=== PATIENT | female | born 1965 | race Caucasian/White ===

== ENCOUNTER 2017-11-24 17:36 | Emergency (ER) | payer OTHER ==
[~2017-11-24] VITALS: Ht 154.9 cm; Wt 49.2 kg
[2017-11-24] MEDS ORDERED: FLONASE 0.05%50 MCG NASAL (17:43)
[2017-11-24] MEDS ORDERED: LAMICTAL100 MG PO (17:43)
[2017-11-24] MEDS ORDERED: VENTOLIN HFA 1818 GM INH (17:44)
[2017-11-24] MEDS ORDERED: SINGULAIR 10 MG10 M1 PO (17:44)
[2017-11-24 18:21] LABS: ABSOLUTE EOSINOPHILS 0.1 thou/uL (0.0-0.7); ABSOLUTE LYMPHOCYTES 3.2 thou/uL (0.8-5.3); ABSOLUTE MONOCYTES 0.5 thou/uL (0.0-1.2); ABSOLUTE NEUTROPHILS 3.6 thou/uL (1.6-8.1); BASOPHILS 0.4 %; HEMATOCRIT 40.9 % (37.0-47.0); HEMOGLOBIN 13.8 gm/dL (12.0-15.0); LYMPHOCYTES 42.8 %; MCHC 33.7 g/dL (28.0-37.0); MCV 91.9 fL (80.0-100.0); MONOCYTES 7.2 %; MPV 7.2 fl. (7.2-11.1); NUCLEATED RBCS 0 /100WBC; PLATELET COUNT* 358 thou/uL (150-400); POLYS 47.6 %; RBC 4.46 mil/uL (4.20-5.00); RDW-CV 12.6 % (10.5-14.5); WBC 7.6 thou/uL (4.0-11.0)
[2017-11-24 18:30] LABS: ANION GAP 12 mmol/L (7-16); BUN 12 mg/dL (7-18); CHLORIDE 101 mmol/L (98-107); CO2 28 mmol/L (21-32); CREATININE 0.7 mg/dL (0.6-1.3); GLUCOSE 90 mg/dL (70-99); POTASSIUM 3.5 mmol/L (3.5-5.1); SODIUM 141 mmol/L (136-145)
[2017-11-24 18:34] LABS: APTT 29.2 Seconds (25.0-31.3); PROTIME 10.2 Seconds (9.20-11.50)
[2017-11-24 18:41] LABS: INFLUENZA A ANTIGEN None Detected (None Detect); INFLUENZA B ANTIGEN None Detected (None Detect)
[2017-11-24 18:41] LABS: ALBUMIN 4.2 g/dL (3.4-5.0); ALKALINE PHOSPHATASE 67 U/L (46-116); NT-PRO BRAIN NAT PEPTIDE 25 pg/mL (<300); SGOT 19 U/L (15-37); SGPT 33 U/L (30-65); TOTAL BILIRUBIN 0.3 mg/dL (<0.1-1.0); TOTAL PROTEIN 7.3 g/dL (6.4-8.2); TROPONIN-I LEVEL <0.06 ng/mL (<0.06)
[2017-11-24] MEDS ORDERED: MEDROLDOSEPACK PO (18:55)
[2017-11-24 19:07] VITALS: BP 134/86
--- NOTE | 2017-11-25 10:53 | EKG ---
[place] [address] ELECTROCARDIOGRAM REPORT Name: MACI BACKEN BURT Room: [facility]#: [id number] Admission: 11/24/17 Attend Phys: Discharge: 11/24/17 Date of : 69 Report #: [id number] THIS REPORT FOR: //name// [facility] ED Test Date: 2017-11-24 Test Time: 17:41:10 Pat Name: POLI BACK Department: Room: Gender: F Hardware Developer: GINNY : 1965 Requested By: Ivis Corado Order Number: [id number] MD: Pola Torrez Measurements Intervals [place] Rate: 77 P: 74 NM: 162 QRS: 56 QRSD: 106 T: 30 QT: 367 QTc: 416 Interpretive Statements Sinus rhythm Probable left atrial enlargement RSR' in V1 or V2, right VCD or RVH No previous ECG available for comparison Electronically Signed On 11-25-2017 10:52:51 CLOTH TEARER by Pola Torrez [email or web address] <ELECTRONICALLY SIGNED> By: Pola Torrez MD, [facility] 11/25/17 1052 D: [id number] Pola Torrez MD, FACC /EPI
== END 2017-11-24 19:07 | disposition home or self-care (01) ==
LOC: M.ERS 17:36
PROVIDERS: Personal Emergency Response Attendant
DX: R07.89 Other chest pain (principal); J32.9 Chronic sinusitis, unspecified; F41.9 Anxiety disorder, unspecified; F32.9 Major depressive disorder, single episode, unspecified; J45.909 Unspecified asthma, uncomplicated; I49.3 Ventricular premature depolarization; Z88.2 Allergy status to sulfonamides

== ENCOUNTER → 2018-12-22 | Outpatient (CLI) | payer OTHER ==
[~2018-12-22] MED LIST: FLONASE 0.05%50 MCG NASAL; LAMICTAL100 MG PO; MEDROLDOSEPACK PO; SINGULAIR 10 MG10 M1 PO; VENTOLIN HFA 1818 GM INH
== END ==
LOC: M.CT 09:30
DX: J01.90 Acute sinusitis, unspecified (principal); J45.909 Unspecified asthma, uncomplicated; J34.2 Deviated nasal septum; Z88.2 Allergy status to sulfonamides; Z88.8 Allergy status to other drugs, medicaments and biological substances; Z82.49 Family history of ischemic heart disease and other diseases of the circulatory system; Z80.42 Family history of malignant neoplasm of prostate; Z83.3 Family history of diabetes mellitus; Z80.3 Family history of malignant neoplasm of breast

== ENCOUNTER → 2019-01-06 | Outpatient (CLI) | payer OTHER | LOC: M.NUC 12-26 14:39 | DX: M27.9 Disease of jaws, unspecified (principal) ==

== ENCOUNTER 2020-07-21 10:43 | Emergency (ER) | payer OTHER ==
[~2020-07-21] VITALS: Ht 154.9 cm; Wt 46.7 kg
[~2020-07-21 10:43] MED LIST changes: +LAMICTAL XR250 MG PO; -LAMICTAL100 MG PO
[2020-07-21] MEDS ORDERED: AZELASTINE205.5 MCG/ NARES (10:59)
[2020-07-21] MEDS ORDERED: SUDAFED 12 HOU120 MG PO (11:00)
[2020-07-21] MEDS ORDERED: ALLEGRA ALLERG180 MG PO (11:00)
[2020-07-21] MEDS ORDERED: IBUPROFEN 800800 M1 PO (11:00)
[2020-07-21] MEDS ORDERED: LORAZEPAM 0.50.5 MG PO (11:00)
[2020-07-21 11:34] LABS: ABSOLUTE EOSINOPHILS 0.1 thou/uL (0.0-0.7); ABSOLUTE LYMPHOCYTES 2.3 thou/uL (0.8-5.3); ABSOLUTE MONOCYTES 0.4 thou/uL (0.0-1.2); ABSOLUTE NEUTROPHILS 2.6 thou/uL (1.6-8.1); BASOPHILS 0.6 %; HEMATOCRIT 43.8 % (37.0-47.0); HEMOGLOBIN 14.3 gm/dL (12.0-15.0); LYMPHOCYTES 41.9 %; MCH 30.2 pg (26.0-34.0); MCHC 32.7 g/dL (28.0-37.0); MCV 92.4 fL (80.0-100.0); MONOCYTES 7.1 %; NUCLEATED RBCS 0 /100WBC; PLATELET COUNT* 376 thou/uL (150-400); POLYS 48.4 %; RBC 4.73 mil/uL (4.20-5.00); RDW-CV 12.7 % (10.5-14.5); WBC 5.4 thou/uL (4.0-11.0)
[2020-07-21 11:43] LABS: URINE BILIRUBIN NEGATIVE (Negative); URINE BLOOD NEGATIVE (Negative); URINE CLARITY CLEAR; URINE COLOR YELLOW; URINE GLUCOSE-RANDOM NEGATIVE (Negative); URINE KETONES NEGATIVE (Negative); URINE LEUKOCYTES-REFLEX NEGATIVE (Negative); URINE NITRITE-REFLEX NEGATIVE (Negative); URINE PROTEIN NEGATIVE (Negative); URINE SPECIFIC GRAVITY <= 1.005 (1.005-1.030); URINE UROBILINOGEN 0.2 E.U./dl (0.2-1.0)
[2020-07-21 11:44] LABS: CALCIUM 9.5 mg/dL (8.5-10.1); CREATININE 0.6 mg/dL (0.6-1.3); POTASSIUM 3.7 mmol/L (3.5-5.1)
[2020-07-21 11:48] LABS: ALBUMIN 4.4 g/dL (3.4-5.0); TOTAL BILIRUBIN 0.4 mg/dL (<0.1-1.0); TOTAL PROTEIN 7.7 g/dL (6.4-8.2)
[2020-07-21] MEDS ORDERED: MECLIZINE HCL25 M1 PO (12:22)
[2020-07-21 12:42] VITALS: BP 137/86
--- NOTE | 2020-07-21 15:51 | EKG ---
[place] [address] ELECTROCARDIOGRAM REPORT Name: MACI BACKEN BURT Room: [facility]#: [id number] Admission: 07/21/20 Attend Phys: Discharge: 07/21/20 Date of : 69 Date of Service: 07/21/20 1120 Report #: [id number] THIS REPORT FOR: //name// [facility] ED Test Date: 2020-07-21 Test Time: 11:20:58 Pat Name: POLI BACK Department: Room: Gender: Automotive Lube Technician: [facility] : 1965 Requested By: Dionicio Beckwith Order Number: [id number] MD: Tu Ayala Measurements Intervals [place] Rate: 69 P: 80 [place]: 178 QRS: 55 QRSD: 88 T: 52 QT: 409 QTc: 438 Interpretive Statements Sinus rhythm RSR' in V1 or V2, probably normal variant Baseline wander in lead(s) II,III,aVF Compared to ECG 11/24/2017 17:41:10 No significant changes noted Electronically Signed On 07-21-2020 15:51:02 CDT by Tu Ayala [email or web address] <ELECTRONICALLY SIGNED> By: Tu Ayala MD, FACC 07/21/20 1551 1120 1120 Tu Ayala MD, FACC /EPI
== END 2020-07-21 12:28 | disposition home or self-care (01) ==
LOC: M.ERS 10:43
PROVIDERS: Emergency Medicine Emergency Medical Services
DX: R42 Dizziness and giddiness (principal); R51.9 Headache, unspecified; R11.0 Nausea; Z79.899 Other long term (current) drug therapy; Z88.2 Allergy status to sulfonamides

== ENCOUNTER → 2020-10-13 | Outpatient (CLI) | payer OTHER ==
[~2020-10-13] MED LIST changes: +ALLEGRA ALLERG180 MG PO; +ASA81BEC PO; +AZELASTINE205.5 MCG/ NARES; +CHILDREN'S ASPI81 M1 PO; +FLONASE 0.05%50 MCG NARES; +IBUPROFEN 800800 M1 PO; +LAMOTRIGINE OD100 MG PO; +LORAZEPAM 0.50.5 MG PO; +MECLIZINE HCL25 M1 PO; +MONTELUKAST SODI4 M1 PO; +NITROSTAT0.4 M1 SUBLING; +PREMARIN30 GM VAG; +PROAIR HFA8.5 GM INH; +SUDAFED 12 HOU120 MG PO; +SUPER THERAVIT1 EACH PO
== END ==
LOC: M.RAD 13:27
PROVIDERS: ATTEND Internal Medicine
DX: J98.4 Other disorders of lung (principal)

== ENCOUNTER 2020-10-14 21:17 | Inpatient (IN) | payer OTHER ==
[~2020-10-14] VITALS: Ht 154.9 cm; Wt 49.0 kg
[~2020-10-14 21:17] MED LIST changes: -ASA81BEC PO; -CHILDREN'S ASPI81 M1 PO; -FLONASE 0.05%50 MCG NARES; -LAMOTRIGINE OD100 MG PO; -MONTELUKAST SODI4 M1 PO; -NITROSTAT0.4 M1 SUBLING; -PREMARIN30 GM VAG; -PROAIR HFA8.5 GM INH; -SUPER THERAVIT1 EACH PO
[2020-10-14 21:24] VITALS: BP 116/79
[2020-10-14] MEDS ORDERED: NITROSTAT0.4 M1 SUBLING ×2 (21:38→21:40)
[2020-10-14] MEDS ORDERED: ASA81BEC PO (21:38)
[2020-10-14] MEDS ORDERED: CHILDREN'S ASPI81 M1 PO (21:39)
[2020-10-14] MEDS ORDERED: PREMARIN30 GM VAG (21:40)
[2020-10-14] MEDS ORDERED: LAMOTRIGINE OD100 MG PO (21:41)
[2020-10-14] MEDS ORDERED: AZELASTINE205.5 MCG/ NARES (21:41)
[2020-10-14] MEDS ORDERED: ALLEGRA ALLERG180 MG PO (21:42)
[2020-10-14] MEDS ORDERED: MONTELUKAST SODI4 M1 PO (21:42)
[2020-10-14] MEDS ORDERED: FLONASE 0.05%50 MCG NARES (21:42)
[2020-10-14] MEDS ORDERED: PROAIR HFA8.5 GM INH (21:42)
[2020-10-14] MEDS ORDERED: SUDAFED 12 HOU120 MG PO (21:43)
[2020-10-14] MEDS ORDERED: SUPER THERAVIT1 EACH PO (21:43)
[2020-10-14] MEDS ORDERED: LORAZEPAM 0.50.5 MG PO (21:43)
[2020-10-14 22:18] LABS: ABSOLUTE BASOPHILS 0.1 thou/uL (0.0-0.2); ABSOLUTE EOSINOPHILS 0.2 thou/uL (0.0-0.7); ABSOLUTE LYMPHOCYTES 3.9 thou/uL (0.8-5.3); ABSOLUTE MONOCYTES 0.8 thou/uL (0.0-1.2); ABSOLUTE NEUTROPHILS 2.9 thou/uL (1.6-8.1); BASOPHILS 0.7 %; EOSINOPHILS 2.4 %; HEMATOCRIT 42.3 % (37.0-47.0); HEMOGLOBIN 14.2 gm/dL (12.0-15.0); LYMPHOCYTES 49.6 %; MCH 30.8 pg (26.0-34.0); MCHC 33.7 g/dL (28.0-37.0); MCV 91.4 fL (80.0-100.0); MONOCYTES 10.3 %; MPV 7.2 fl. (7.2-11.1); NUCLEATED RBCS 0 /100WBC; PLATELET COUNT* 415 thou/uL (150-400); RBC 4.62 mil/uL (4.20-5.00); RDW-CV 12.9 % (10.5-14.5); WBC 7.8 thou/uL (4.0-11.0)
[2020-10-14 22:23] LABS: CALCIUM 9.5 mg/dL (8.5-10.1); CREATININE 0.7 mg/dL (0.6-1.3)
[2020-10-14 22:28] LABS: APTT 27.9 Seconds (25.0-31.3); PROTIME 10.4 Seconds (9.20-11.50)
[2020-10-14 22:34] LABS: ALBUMIN 4.4 g/dL (3.4-5.0); TOTAL BILIRUBIN 0.3 mg/dL (<0.1-1.0); TOTAL PROTEIN 7.6 g/dL (6.4-8.2)
[2020-10-14 22:35] LABS: MONOTEST (MONOSPOT)* NEGATIVE (Negative)
[2020-10-15] VITALS (8 sets, daily range): BP systolic 120–157; BP diastolic 71–92
[2020-10-15 00:35] LABS: INFLUENZA A ANTIGEN Negative (Negative); INFLUENZA B ANTIGEN Negative (Negative)
--- NOTE | 2020-10-15 13:53 | EKG ---
[place] [address] ELECTROCARDIOGRAM REPORT Name: POLI BACKNE Room: [address]#: [id number] Admission: 10/15/20 Attend Phys: Марина Munguia MD Discharge: Date of : [birth year] Date of Service: 10/14/202122 Report #: [id number] THIS REPORT FOR: //name// [facility] ED Test Date: 2020-10-14 Test Time: 21:23:01 Pat Name: POLI BACK Department: Room: [facility] Gender: F Audio Visual Production Specialist: : 1965 Requested By: Ivis Corado Order Number: [id number] MD: Alphonso Beckham Measurements Intervals [place] Rate: 92 P: 76 [place]: 160 QRS: 64 QRSD: 88 T: 61 QT: 367 QTc: 455 Interpretive Statements Sinus rhythm Ventricular trigeminy RSR' in V1 or V2, probably normal variant Minimal ST depression, inferior leads Compared to ECG 07/21/2020 11:20:58 Ventricular premature complex(es) now present ST (T wave) deviation now present Electronically Signed On 10-15-2020 13:52:56 JOB SERVICE CONSULTANT by Alphonso Beckham [email or web address] <ELECTRONICALLY SIGNED> By: Madison Beckham MD, [facility] 10/15/20 1352 22 22 Madison Beckham MD, [facility] /EPI
[2020-10-16 04:09] VITALS: BP 134/72
[2020-10-16 09:00] VITALS: BP 148/76
--- NOTE | 2020-10-16 12:42 | CON ---
[address] [address] CONSULTATION Name: POLI BACK Room: [address] IN [facility].#: [id number] Admission: 10/16/20 Attend Phys: Марина Munguia MD Discharge: Date of : 69 Report #: [id number] THIS REPORT FOR: cc: Robyn Paredes Linda J. DO ~ Madison Beckham MD [facility] CONSULTATION HISTORY OF PRESENT ILLNESS: I was asked by Dr. Марина Munguia to see this 55-year-old white female in cardiology consultation for evaluation and treatment of chest pain. I saw this lady on 10/13/2020 in my office as an initial consultation as well. Please see my initial consultation note in the chart. This lady has a history of chest pain with shortness of breath as well as palpitations and irregular heartbeats and tachycardia, fatigue, dyspnea on exertion. These symptoms apparently began with the onset of COVID-19 approximately 2 months ago. They have persisted. She does have an abnormal EKG with nonspecific ST-T abnormalities. On her EKG today when she came in at this time, she had a ventricular trigeminy, which accounts for her palpitations. She does have essential hypertension that has been untreated and hypercholesterolemia that has been untreated. She does have a positive family history of coronary artery disease. She also is on estrogens, albeit transvaginal at 0.625 mg of Premarin and likely much of it is absorbed. She also has asthma and is on a variety of medicines for that. Her chest discomfort is a substernal pressure, is normally 3 on a scale of 10. It does have an exertional component. It usually lasts 15-20 minutes. There is associated shortness of breath and also when she gets it, she is sufficiently short of breath she cannot talk. We were attempting to schedule outpatient workup for, but she came into the ER yesterday evening, apparently because of more chest discomfort. This discomfort occurred at rest. It was a 6 or 7 on a scale of 10. It went on for more than 40 minutes. It had the same associated symptoms. Her EKG did not show any particularly acute changes, although there were suspicious ST changes in the inferior and lateral leads as well as a ventricular trigeminy. Again, see my entire note. It includes family history, social history, review of systems and past medical history including medications. PHYSICAL EXAMINATION: GENERAL: Today, she presents as well-developed, well-nourished white female, in no acute distress. VITAL SIGNS: Her pulse was 61 when I saw her, her blood pressure was 120/71, respirations 17 and regular, temperature is 97.8 degrees. HEENT: Her head was atraumatic. Eyes clear. NECK: Supple. There is no jugular venous distention or hepatojugular reflux. Thyroid is not enlarged. There is no adenopathy. SKIN: Warm and dry. Mucous membranes are moist. LUNGS: Clear [place] [address] CONSULTATION Name: POLI BACK Room: [address] IN [facility]#: [id number] Admission: 10/16/20 Attend Phys: Марина Munguia MD Discharge: Date of : 69 Report #: [id number] HEART: Revealed normal first and second heart sound. There is soft S4. There is no S3. There are no murmurs, rubs, thrills, heaves or gallops. PMI is nondisplaced. The rhythm was regular when I listened to her. There were no murmurs, rubs, thrills, heaves or gallops. ABDOMEN: Soft, flat and nontender. No palpable masses, no organomegaly. EXTREMITIES: Reveal no cyanosis, clubbing or edema. NEUROLOGIC: The patient mentated normally, talked normally, moved all extremities normally. IMPRESSION: 1. Chest pain. 2. Shortness of breath. 3. Status post COVID-19. 4. Palpitations. 5. Ventricular premature complexes. 6. Abnormal EKG. 7. Essential hypertension. 8. Hypercholesterolemia. 9. Asthma. RECOMMENDATION: She should have an exercise Cardiolite stress test and an echo and then go from there. If those are negative, she will need an MRI of her heart. Thank you very much for asking me to see the patient. If there are any questions, please feel free to contact me. <ELECTRONICALLY SIGNED> By: Madison Beckham MD, FACC 10/16/20 1242 1155 [id number]. Alphonso Beckham MD, FACC /nt
[2020-10-16 14:01] VITALS: BP 102/58
[2020-10-16 18:56] VITALS: BP 136/86
[2020-10-16 21:00] VITALS: BP 136/80
[2020-10-17 01:54] VITALS: BP 134/85
[2020-10-17 05:05] VITALS: BP 116/84
[2020-10-17 07:30] VITALS: BP 147/95
--- NOTE | 2020-10-17 15:01 | 2DMMODE ---
[place] [address] 2 D/M-MODE ECHOCARDIOGRAM Name: POLI BACK Room: [address] IN [facility]#: [id number] Admission: 10/16/20 Attend Phys: Марина Munguia MD Discharge: Date of : 69 Date of Service: 10/17/20 1500 Report #: [id number] THIS REPORT FOR: cc: Robyn Paredes,Robyn Braun,Mehrdad Dominique MD [facility] ~ APPROVED REPORT Study performed: 10/17/2020 13:07:57 EXAM: Comprehensive 2D, Doppler, and color-flow Echocardiogram Patient Location: In-Patient Room #: [facility] BSA: 1.44 HR: 82 bpm BP: 116/84 mmHg Other Information Study Quality: Good Indications Chest Pain 2D Dimensions IVSd: 9.37 (7-11mm) LVOT Diam: 19.76 (18-24mm) LVDd: 39.18 mm PWd: 8.85 (7-11mm) Ascending Ao: 26.86 (22-36mm) LVDs: 23.73 (25-40mm) Aortic Root: 30.48 mm Volumes Left Atrial Volume (Systole) LA ESV Index: 7.20 mL/m2 Aortic Valve AoV Peak Rudy.: 0.90 m/s AO Peak Gr.: 3.27 mmHg LVOT Max P.24 mmHg AO Mean Gr.: 1.46 mmHg LVOT Mean P.06 mmHg LVOT Max V: 0.75 m/s AO V2 VTI: 15.06 cm LVOT Mean V: 0.47 m/s SILVERIO (VTI): 2.92 cm2 LVOT V1 VTI: 14.34 [place] [address] 2 D/M-MODE ECHOCARDIOGRAM Name: POLI BACK Room: [address] IN ..#: [id number] Admission: 10/16/20 Attend Phys: Марина Munguia MD Discharge: Date of : 69 Date of Service: 10/17/20 1500 Report #: [id number] E/A Ratio: 0.92 MV Decel. Time: 161.61 ms MV E Max Rudy.: 0.55 m/s MV PHT: 46.87 ms MVA (PHT): 4.69 cm2 TDI E/Lateral E': 5.50 E/Medial E': 9.17 Medial E' Rudy.: 0.06 m/s Lateral E' Rudy.: 0.10 m/s Pulmonary Valve PV Peak Rudy.: 0.65 m/s PV Peak Gr.: 1.71 mmHg Left Ventricle The left ventricle is normal size. There is normal LV segmental wall motion. There is normal left ventricular wall thickness. Left ventricular systolic function is normal. The left ventricular ejection fraction is within the normal range. LVEF is 55-60%. Grade I - abnormal relaxation pattern. Right Ventricle The right ventricle is normal size. The right ventricular systolic function is normal. Atria The left atrium size is normal. The right atrium size is normal. Aortic Valve The aortic valve is normal in structure. No aortic regurgitation is present. There is no aortic valvular stenosis. Mitral Valve The mitral valve is normal in structure. There is no mitral valve regurgitation noted. No evidence of mitral valve stenosis. Tricuspid Valve The tricuspid valve is normal in structure. There is no tricuspid valve regurgitation noted. Pulmonic Valve The pulmonary valve is normal in structure. There is no pulmonic valvular [place] [address] 2 D/M-MODE ECHOCARDIOGRAM Name: POLI BACK Room: [address] IN [facility]#: [id number] Admission: 10/16/20 Attend Phys: Марина Munguia MD Discharge: Date of : 69 Date of Service: 10/17/20 1500 Report #: [id number] The aortic root is normal in size. IVC is normal in size and collapses >50% with inspiration. Pericardium There is no pericardial effusion. <Conclusion> The left ventricle is normal size. There is normal left ventricular wall thickness. Left ventricular systolic function is normal. The left ventricular ejection fraction is within the normal range. LVEF is 55-60%. Grade I - abnormal relaxation pattern. The right ventricle is normal size. The left atrium size is normal. The aortic valve is normal in structure. The mitral valve is normal in structure. The tricuspid valve is normal in structure. IVC is normal in size and collapses >50% with inspiration. There is no pericardial effusion. There is normal LV segmental wall motion. <ELECTRONICALLY SIGNED> By: Mehrdad Perdue MD, FACC 10/17/20 1500 1500 1500 Mehrdad Perdue MD, FACC /INF
[2020-10-17 16:31] VITALS: BP 147/95
--- NOTE | 2020-10-17 16:50 | CARDNUC ---
[place] [address] CARDIAC NUCLEAR IMAGING REPORT Name: POLI BACK Room: [address] IN [facility]#: [id number] Admission: 10/16/20 Attend Phys: Марина Munguia MD Discharge: Date of : [birth year] Date of Service: 10/17/20 1649 Report #: [id number] THIS REPORT FOR: cc: Robyn Paredes Linda J. DO Liston, Michael J. MD [facility] ~ APPROVED REPORT Imaging Protocol: Stress Tc-99m/Rest Tc-99m 1 day Study performed: 10/15/2020 12:35:00 Indication: Chest pain, dyspnea, ABN EKG, Palpitations, tachycardia, PVC's, ventricular trigeminy. Patient Location: In-Patient Room #: 223 Stress Tech: Renetta Covarrubias Stress Nurse: Bebe Hui RN Ht: 5 ft 1 in Wt: 103 lbs BSA: 1.42 m2 BMI: 19.45 Medical History Medical History: Chest pain, dyspnea, ABN EKG, Palpitations, PVC's, ventricular trigeminy, tachycardia, increased fatigue/weakness, s/p covid, asthma, HTN, HLD. Medications: ASA 81 Mg, NTG, New unknown Calcium CB prescription not yet started. Allergies: Sulfa ABX. Cardiac Risk Factors: FHX of CAD, HTN, Hyperlipidemia, SOB, PVC's, ventricular trigeminy, tachycardia. Previous Cardiac Procedures: None Pretest Chest Pain Characteristics: No chest pain Exercise History: Less physically active since Covid diagnosis. Physical Disabilities: Fatigue, weakness, dyspnea. Meds Held (24 hrs): NTG. Resting Data Rest SPECT myocardial perfusion imaging was performed in supine position 30 minutes following the intravenous injection of 10.5 mCi of Tc-99m Sestamibi. Time of rest injection: 09:00 The images were gated to evaluate regional wall motion and calculate [place] [address] CARDIAC NUCLEAR IMAGING REPORT Name: POLI BACK Room: [address]#: [id number] Admission: 10/16/20 Attend Phys: Марина Munguia MD Discharge: Date of : [birth year] Date of Service: 10/17/20 1649 Report #: [id number] Administration Route: IV Administration Site: Right AC Exercise Stress At peak stress, the patient was injected intravenously with 28.7mCi of Tc-99m Sestamibi. Time of stress injection: 11:15 Administration Route: IV Administration Site: Right AC Heart Rate at time of stress injection: 160 bpm. Patient continued to exercise for 1 minute(s). Gated Stress SPECT was performed 45 minutes after stress injection. The images were gated to evaluate regional wall motion and calculate left ventricular ejection fraction. Prone imaging was performed. Stress Test Details Stress Test: Exercise stress testing was performed using a Pascual protocol. HR Max Heart Rate (APMHR): 167 bpm Resting HR: 77 bpm Target HR (85% APMHR): 141 bpm Max HR Achieved: 160 bpm % of APMHR: 95 Recovery HR: 97 bpm BP Resting BP: 137/98 mmHg Max BP: 187/103 mmHg Recovery BP: 135/101 mmHg ECG Resting ECG: Sinus Rhythm Stress ECG: Sinus Tachycardia ST Change: None Arrhythmia: VPC's Recovery ECG: Sinus Rhythm Recovery ST Change: None Recovery Arrhythmia: VPC's Clinical Reason for Termination: Completed protocol, Maximal effort, Patient Request, Dyspnea, Dizziness. Stress Symptoms: Dyspnea, Weakness/Fatigue, Dizziness/lightheadedness. Exercise duration: 5 min 15 [place] [address] CARDIAC NUCLEAR IMAGING REPORT Name: POLI BACK Room: [address]#: [id number] Admission: 10/16/20 Attend Phys: Марина Munguia MD Discharge: Date of : 69 Date of Service: 10/17/20 1649 Report #: [id number] Exercise capacity: 7.05 METs Overall Exercise Capacity for Age: Reduced Functional Aerobic Impairment 95% The patient tolerated standard Pascual protocol exercise without significant cardiac symptoms. Exercise tolerance was somewhat limited. Patient did achieve target heart rate. Nurse Comments A 55 year old female inpatient presented for a treadmill Nuclear Stress test r/t chest pain, irregular HR, PVC's, ventricular trigeminy, increased SOA and fatigue/weakness s/p covid. Test tolerated through stage 2, reduced exercise capacity. Patient recovery extended d/t dyspnea, lightheadedness/dizziness. O2 Stats 100%. Patient escorted via wheelchair to Nuclear Medicine for imaging. Patient stated she felt better at that time. Stress ECG Conclusion The baseline twelve-lead EKG shows sinus rhythm with unifocal premature ventricular contractions. EKGs obtained during and post exercise show sinus rhythm and sinus tachycardia with continued unifocal premature ventricular contractions. No other significant arrhythmias were noted. Study Quality Study: Good Artifact: No artifact Study Data At rest, the left ventricular ejection fraction was 75%.. Post stress, the left ventricular ejection was 72%.. TID = 0.93. Perfusion Perfusion images obtained at rest and post exercise stress show uniform uptake of the radioisotope throughout the myocardium. Wall Motion Normal left ventricular wall motion. Nuclear Conclusion ECG Findings: negative for ischemia Clinical Findings: negative for ischemia Nuclear Findings: negative for ischemia Exercise Capacity: Limited Left Ventricular Function: normal Risk Study: [place] [address] CARDIAC NUCLEAR IMAGING REPORT Name: POLI BACK Room: [address]#: [id number] Admission: 10/16/20 Attend Phys: Марина Munguia MD Discharge: Date of : 69 Date of Service: 10/17/20 1649 Report #: [id number] Perfusion images show no defect to suggest infarct or ischemia. Left ventricular systolic function appears normal on gated studies. This is a low risk study. <Conclusion> The baseline twelve-lead EKG shows sinus rhythm with unifocal premature ventricular contractions. EKGs obtained during and post exercise show sinus rhythm and sinus tachycardia with continued unifocal premature ventricular contractions. No other significant arrhythmias were noted. <ELECTRONICALLY SIGNED> By: Tu Ayala MD, FACC 10/17/201648 48 48 Tu Ayala MD, FACC /INF
[2020-10-17 16:57] VITALS: BP 152/90
[2020-10-18 08:08] LABS: ANA INTERPRETATION Negative (Negative)
[2020-10-18 17:10] LABS: ANA INTERPRETATION Negative (())
== END 2020-10-17 18:10 | disposition home or self-care (01) | DRG 310 ==
LOC: M.ERS 21:17 → M.TBA-ER 10-15 00:14 → M.2W 10-15 01:18
PROVIDERS: Internal Medicine; Personal Emergency Response Attendant; ADMIT Family Medicine; ATTEND Family Medicine
DX: I49.3 Ventricular premature depolarization (principal); R07.9 Chest pain, unspecified; F32.9 Major depressive disorder, single episode, unspecified; J45.909 Unspecified asthma, uncomplicated; F41.9 Anxiety disorder, unspecified; I10 Essential (primary) hypertension; E78.00 Pure hypercholesterolemia, unspecified; I25.10 Atherosclerotic heart disease of native coronary artery without angina pectoris; Z86.16 Personal history of COVID-19; Z20.822 Contact with and (suspected) exposure to COVID-19; Z88.2 Allergy status to sulfonamides; Z90.710 Acquired absence of both cervix and uterus; Z79.82 Long term (current) use of aspirin; Z79.899 Other long term (current) drug therapy

== ENCOUNTER → 2020-12-09 | Outpatient (CLI) | payer OTHER ==
[~2020-12-09] MED LIST changes: +ASA81BEC PO; +CHILDREN'S ASPI81 M1 PO; +FLONASE 0.05%50 MCG NARES; +LAMOTRIGINE OD100 MG PO; +MONTELUKAST SODI4 M1 PO; +NITROSTAT0.4 M1 SUBLING; +PREMARIN30 GM VAG; +PROAIR HFA8.5 GM INH; +SUPER THERAVIT1 EACH PO
[2020-12-12 21:05] LABS: ANA INTERPRETATION Negative (())
== END ==
LOC: M.LAB 14:50
PROVIDERS: ATTEND Internal Medicine
DX: R94.31 Abnormal electrocardiogram [ECG] [EKG] (principal); G93.3 Postviral and related fatigue syndromes; R07.9 Chest pain, unspecified; Z86.16 Personal history of COVID-19

== ENCOUNTER → 2021-01-13 | Outpatient (CLI) | payer OTHER | LOC: M.CT 09:12 | PROVIDERS: ATTEND Nurse Practitioner | DX: J45.40 Moderate persistent asthma, uncomplicated (principal); G93.3 Postviral and related fatigue syndromes; F48.8 Other specified nonpsychotic mental disorders; R42 Dizziness and giddiness; H93.13 Tinnitus, bilateral; Z86.16 Personal history of COVID-19 ==

== ENCOUNTER 2021-02-06 09:33 | Emergency (ER) | payer OTHER ==
[~2021-02-06] VITALS: Ht 154.9 cm; Wt 45.4 kg
[2021-02-06 10:24] LABS: URINE BILIRUBIN NEGATIVE (Negative); URINE BLOOD NEGATIVE (Negative); URINE CLARITY CLEAR; URINE COLOR YELLOW; URINE GLUCOSE-RANDOM NEGATIVE (Negative); URINE KETONES NEGATIVE (Negative); URINE LEUKOCYTES NEGATIVE (Negative); URINE NITRITE NEGATIVE (Negative); URINE PROTEIN NEGATIVE (Negative); URINE UROBILINOGEN 0.2 E.U./dl (0.2-1.0)
[2021-02-06 11:15] LABS: HEMATOCRIT 43.6 % (37.0-47.0); HEMOGLOBIN 14.8 gm/dL (12.0-15.0); MCHC 33.9 g/dL (28.0-37.0); MCV 91.3 fL (80.0-100.0); MPV 6.5 fl. (7.2-11.1); RBC 4.78 mil/uL (4.20-5.00); RDW-CV 12.6 % (10.5-14.5); WBC 7.2 thou/uL (4.0-11.0)
[2021-02-06 11:20] LABS: CALCIUM 9.1 mg/dL (8.5-10.1); CREATININE 0.5 mg/dL (0.6-1.3); POTASSIUM 3.7 mmol/L (3.5-5.1)
[2021-02-06] MEDS ORDERED: ZOFRAN ODT4 MG PO (13:35)
[2021-02-06] MEDS ORDERED: NORCO5 PO (13:35)
[2021-02-06] MEDS ORDERED: MEDROLDOSEPACK PO (13:43)
[2021-02-06 13:59] VITALS: BP 143/93
== END 2021-02-06 14:00 | disposition home or self-care (01) ==
LOC: M.ERS 09:33
PROVIDERS: Emergency Medicine
DX: M54.16 Radiculopathy, lumbar region (principal); J45.909 Unspecified asthma, uncomplicated; Z90.710 Acquired absence of both cervix and uterus; Z90.89 Acquired absence of other organs; Z88.2 Allergy status to sulfonamides; Z88.5 Allergy status to narcotic agent

== ENCOUNTER → 2021-03-30 | Outpatient (CLI) | payer OTHER ==
[~2021-03-30] MED LIST changes: +NORCO5 PO; +ZOFRAN ODT4 MG PO
== END ==
LOC: M.CT 12:56
PROVIDERS: ATTEND Family Medicine
DX: N28.1 Cyst of kidney, acquired (principal); N28.89 Other specified disorders of kidney and ureter

== ENCOUNTER → 2021-04-04 | Outpatient (CLI) | payer OTHER | LOC: M.PUL 12:30 | PROVIDERS: ATTEND Family Medicine | DX: G47.19 Other hypersomnia (principal); G47.9 Sleep disorder, unspecified; R25.3 Fasciculation ==

== ENCOUNTER 2021-09-05 12:35 | Emergency (ER) | payer OTHER ==
[~2021-09-05] VITALS: Ht 152.4 cm; Wt 48.5 kg
[2021-09-05] MEDS ORDERED: DILTIAZEM ER180 M2 PO (12:55)
[2021-09-05] MEDS ORDERED: DESYREL150 MG PO (12:56)
[2021-09-05] MEDS ORDERED: DRIZALMA SPRINK30 MG PO (12:56)
[2021-09-05] MEDS ORDERED: VITAMIN D350 MCG PO (12:57)
[2021-09-05] MEDS ORDERED: BREO ELLIPTA 11 EACH (12:57)
[2021-09-05] MEDS ORDERED: RED YEAST RICE600 MG PO (12:57)
[2021-09-05] MEDS ORDERED: MAPAP500 MG PO (12:58)
[2021-09-05] MEDS ORDERED: CEFUROXIME250 MG PO (13:00)
[2021-09-05] MEDS ORDERED: TESSALON PERLE100 MG PO (13:01)
[2021-09-05] MEDS ORDERED: RAYOS5 MG PO (13:01)
[2021-09-05 14:09] LABS: URINE BILIRUBIN NEGATIVE (Negative); URINE BLOOD NEGATIVE (Negative); URINE CLARITY SL CLOUDY; URINE COLOR YELLOW; URINE GLUCOSE-RANDOM NEGATIVE (Negative); URINE KETONES NEGATIVE (Negative); URINE LEUKOCYTES-REFLEX NEGATIVE (Negative); URINE NITRITE-REFLEX NEGATIVE (Negative); URINE PROTEIN NEGATIVE (Negative); URINE SPECIFIC GRAVITY 1.015 (1.005-1.030); URINE UROBILINOGEN 0.2 E.U./dl (0.2-1.0)
[2021-09-05 14:26] LABS: ABSOLUTE BASOPHILS 0.1 thou/uL (0.0-0.2); ABSOLUTE EOSINOPHILS 0.2 thou/uL (0.0-0.7); ABSOLUTE MONOCYTES 0.6 thou/uL (0.0-1.2); ABSOLUTE NEUTROPHILS 4.1 thou/uL (1.6-8.1); BASOPHILS 0.7 %; MPV 6.5 fl. (7.2-11.1); WBC 7.6 thou/uL (4.0-11.0)
[2021-09-05 14:29] LABS: ABSOLUTE LYMPHOCYTES 2.7 thou/uL (0.8-5.3); EOSINOPHILS 2.3 %; HEMATOCRIT 41.5 % (37.0-47.0); HEMOGLOBIN 13.9 gm/dL (12.0-15.0); LYMPHOCYTES 35.7 %; MCH 30.8 pg (26.0-34.0); MCHC 33.5 g/dL (28.0-37.0); MCV 91.9 fL (80.0-100.0); NUCLEATED RBCS 0 /100WBC; PLATELET COUNT* 406 thou/uL (150-400); POLYS 53.3 %; RBC 4.52 mil/uL (4.20-5.00); RDW-CV 13.1 % (10.5-14.5)
[2021-09-05 14:33] LABS: CALCIUM 9.7 mg/dL (8.5-10.1); CREATININE 0.7 mg/dL (0.6-1.3); POTASSIUM 3.6 mmol/L (3.5-5.1)
[2021-09-05 14:37] LABS: ALBUMIN 4.2 g/dL (3.4-5.0); TOTAL BILIRUBIN 0.3 mg/dL (<0.1-1.0); TOTAL PROTEIN 7.5 g/dL (6.4-8.2)
[2021-09-05] MEDS ORDERED: HYDROCODON-ACE1 EAC7 PO (16:06)
[2021-09-05] MEDS ORDERED: FLEXERIL PO (16:06)
[2021-09-05] MEDS ORDERED: ZOFRAN ODT4 MG DISSOLVE (16:06)
[2021-09-05 16:22] VITALS: BP 141/70
--- NOTE | 2021-09-06 14:16 | EKG ---
[place] [address] ELECTROCARDIOGRAM REPORT Name: NAZANINPOLICYNTHIA [place] Room: [facility]#: [id number] Admission: 09/05/21 Attend Phys: Discharge: 09/05/21 Date of : 69 Date of Service: 09/05/21 1421 Report #: [id number] THIS REPORT FOR: //name// [facility] ED Test Date: 2021-09-05 Test Time: 14:21:50 Pat Name: POLI BACK Department: Room: Gender: Auto Hauler: DIANA : 1965 Requested By: Dionicio Beckwith Order Number: [id number] MD: Mehrdad Perdue Measurements Intervals [place] Rate: 77 P: 73 [place]: 179 QRS: 55 QRSD: 85 T: 57 QT: 402 QTc: 455 Interpretive Statements Sinus rhythm Probable left atrial enlargement RSR' in V1 or V2, probably normal variant Compared to ECG 10/14/2020 21:23:01 Ventricular premature complex(es) no longer present ST (T wave) deviation no longer present Electronically Signed On 09-06-2021 14:16:12 FEEDER CATCHER by Mehrdad Perdue [email or web address] <ELECTRONICALLY SIGNED> By: Mehrdad Perdue MD, FACC 09/06/21 1416 142 142 Mehrdad Perdue MD, FAC /EPI
== END 2021-09-05 16:22 | disposition home or self-care (01) ==
LOC: M.ERS 12:35
PROVIDERS: Emergency Medicine Emergency Medical Services; Nurse Practitioner Family
DX: R07.89 Other chest pain (principal); R10.32 Left lower quadrant pain; F41.9 Anxiety disorder, unspecified; F32.9 Major depressive disorder, single episode, unspecified; J45.909 Unspecified asthma, uncomplicated; Z90.710 Acquired absence of both cervix and uterus; Z90.89 Acquired absence of other organs; Z79.899 Other long term (current) drug therapy; Z88.2 Allergy status to sulfonamides; Z88.5 Allergy status to narcotic agent